=== PATIENT | male | born 1955 | race Caucasian/White ===

== ENCOUNTER → 2018-08-12 | Outpatient (CLI) | payer BC ==
--- NOTE | 2018-08-12 16:48 | KCIC ---
Single view bilateral knee dated 08/12/2018. No comparison available. Clinical data indication: Left knee pain. FINDINGS: Standing AP views of bilateral knees show normal bony alignment. No displaced fracture. No significant hypertrophic changes. No periostitis or bone destruction. IMPRESSION: No acute findings. Electronically signed by: Flip Person MD (08/12/2018 4:45 PM) [id number]
--- NOTE | 2018-08-12 17:47 | KCIC ---
MRI of the lumbar spine without contrast 08/12/2018 CLINICAL HISTORY: Low back pain which radiates down the left leg. TECHNIQUE: Unenhanced T1-weighted and T2-weighted sagittal and axial and inversion recovery sagittal images of the lumbar spine were obtained. FINDINGS: No previous imaging studies are available for comparison. Very mild S-shaped curvature of the thoracolumbar spine is seen. Degenerative signal changes are seen involving all of the disks of the lumbar spine. Degenerative signal changes are seen within the marrow surrounding these discs. Loss of height of the L1-2, L2-3 and L3-4 discs is noted. The conus medullaris is normal morphology, position, and signal characteristics. At the L1-2 disc space there is a mild to moderate generalized disc bulge. Superimposed on this disc bulge is a right paracentral focal disc protrusion. This measures 2.5 mm in AP diameter. Degenerative changes are seen involving the facet joints bilaterally. There is mild ligamentum flavum hypertrophy bilaterally. These findings when combined result in mild right greater than left central spinal canal stenosis. No neural foraminal stenosis is seen. At the L2-3 disc space there is a mild to moderate generalized disc bulge. Superimposed on this disc bulge is a left paracentral focal disc herniation which extrudes inferiorly and laterally to the left. The extruded disc fragment measures 1.4 x 1.1 x 0.7 cm in craniocaudal, transverse and AP dimensions. Degenerative changes are seen involving the facet joints bilaterally. There is moderate ligamentum flavum hypertrophy bilaterally. These findings when combined result in moderate to severe left greater than right central spinal canal stenosis. Mild to moderate left neural foraminal stenosis is seen. The right neural foramen is patent. The disc herniation appears to impinge upon the left L3 nerve root within the left aspect of the central spinal canal. At the L3-4 disc space there is a mild to moderate generalized disc bulge. Degenerative changes are seen involving the facet joints bilaterally. There is mild ligament flavum hypertrophy bilaterally. There is prominence of the posterior epidural fat. These findings when combined result in mild to moderate central spinal canal stenosis. No neural foraminal stenosis is seen. At the L4-5 disc space there is a mild to moderate generalized disc bulge. Degenerative changes are seen involving the facet joints bilaterally. There is mild ligamentum flavum hypertrophy bilaterally. These findings when combined result in mild central spinal canal stenosis. No neural foraminal stenosis is seen. At the L5-S1 disc space there is a mild generalized disc bulge. Degenerative changes are seen involving the facet joints bilaterally. There is mild ligament flavum hypertrophy. These findings when combined do not result in significant central spinal canal or neural foraminal stenosis. IMPRESSION: The changes of degenerative disc disease are seen throughout the lumbar spine. These findings result in multilevel central spinal canal stenosis as outlined above. A left paracentral focal disc herniation is seen at L2-3 which extrudes inferiorly. This contributes to moderate to severe left greater than right central spinal canal stenosis and appears to impinge upon the left L3 nerve root as outlined above. Mild left neural foraminal stenosis is seen at L2-3. Electronically signed by: Roverto Omer MD (08/12/2018 5:44 PM) [id number]
== END | disposition home or self-care (01) ==
LOC: KCIC MRI 15:55
PROVIDERS: ATTEND Physical Medicine & Rehabilitation
DX: M51.36 Other intervertebral disc degeneration, lumbar region (principal); M48.061 Spinal stenosis, lumbar region without neurogenic claudication; M51.26 Other intervertebral disc displacement, lumbar region; M25.562 Pain in left knee
CPT/HCPCS: 72148; 73565